=== PATIENT | female | born 1995 | race Caucasian/White ===

== ENCOUNTER 2021-06-13 18:06 | Emergency (ER) | payer BC ==
[~2021-06-13] VITALS: Ht 154.9 cm; Wt 79.8 kg
[2021-06-13 19:34] LABS: HEMOGLOBIN 10.7 gm/dl (12.3-15.3); RED BLOOD COUNT 3.35 M/UL (4.00-5.10); WHITE BLOOD COUNT 7.7 K/UL (4.5-11.0)
[2021-06-13 20:00] LABS: BUN/CREATININE RATIO 14 (0-10)
== END 2021-06-14 00:50 | disposition home or self-care (01) ==
LOC: ER1 18:06
DX: Z23 Encounter for immunization (principal); U07.1 COVID-19
CPT/HCPCS: 71045; 80053; 82550; 82553; 83874; 84484; 85025; 85379; 86140; 93005; 99285; J7030; M0243; U0002

== ENCOUNTER 2021-07-24 19:53 | Outpatient (CLI) | payer BC | END 2021-07-24 21:26 | disposition home or self-care (01) | LOC: GENOP 19:53 | DX: O99.891 Other specified diseases and conditions complicating pregnancy (principal); N89.8 Other specified noninflammatory disorders of vagina; O99.513 Diseases of the respiratory system complicating pregnancy, third trimester; J45.909 Unspecified asthma, uncomplicated; Z3A.30 30 weeks gestation of pregnancy | CPT/HCPCS: 83518; G0463 ==

== ENCOUNTER 2021-09-27 15:44 | Inpatient (IN) | payer BC ==
[~2021-09-27] VITALS: Ht 154.9 cm; Wt 86.6 kg
[2021-09-27 17:59] LABS: HEMOGLOBIN 11.6 gm/dl (12.3-15.3); RED BLOOD COUNT 3.56 M/UL (4.00-5.10); WHITE BLOOD COUNT 11.4 K/UL (4.5-11.0)
[2021-09-27] MEDS ORDERED: PNV 29-1 TABLE1 EACH PO (18:10)
[2021-09-29 08:09] LABS: HEMOGLOBIN 9.5 gm/dl (12.3-15.3)
[2021-09-29] MEDS ORDERED: DOCUSATE SODIU100 MG PO (10:36)
[2021-09-29] MEDS ORDERED: FERROUS SULFAT325 MG PO (10:36)
[2021-09-29] MEDS ORDERED: IBUPROFEN600 MG PO (10:36)
[2021-09-30] MEDS ORDERED: HYDROCODON-ACE1 EAC4 PO (09:24)
== END 2021-09-30 13:22 | disposition home or self-care (01) | DRG 806 ==
LOC: GENOP 15:44 → OB 17:31 → GENOP 18:08 → OB 18:14
PROVIDERS: Obstetrics & Gynecology; ADMIT Obstetrics & Gynecology
PROC: 10E0XZZ Delivery of Products of Conception, External Approach (ICD-10-PCS; principal; 2021-09-28)
PROC: 0KQM0ZZ Repair Perineum Muscle, Open Approach (ICD-10-PCS; 2021-09-28)
PROC: 3E0234Z Introduction of Serum, Toxoid and Vaccine into Muscle, Percutaneous Approach (ICD-10-PCS; 2021-09-28)
DX: O99.02 Anemia complicating childbirth (principal); D62 Acute posthemorrhagic anemia; Z37.0 Single live birth; O70.1 Second degree perineal laceration during delivery; O99.52 Diseases of the respiratory system complicating childbirth; J30.2 Other seasonal allergic rhinitis; Z20.822 Contact with and (suspected) exposure to COVID-19; Z90.89 Acquired absence of other organs; Z82.49 Family history of ischemic heart disease and other diseases of the circulatory system; Z98.890 Other specified postprocedural states; Z3A.39 39 weeks gestation of pregnancy; Z23 Encounter for immunization
CPT/HCPCS: 36415; 81001; 83518; 85014; 85018; 85025; 90471; 90715; G0378; J0595; J2590; J7120